=== PATIENT | female | born 1935 | race Caucasian/White ===

== ENCOUNTER 2017-06-19 08:05 | Emergency (ER) | payer MEDICARE, OTHER ==
[~2017-06-19] VITALS: Ht 157.5 cm; Wt 62.0 kg
[2017-06-19 08:18] VITALS: BP 177/83; PULSE 72; RESP 16; TEMP 98; O2SAT 96
[2017-06-19 08:57] LABS: GLUCOSE,URINE NEG (NEG); KETONE, URINE NEG (NEG); NITRITE,URINE NEG (NEG)
[2017-06-19] MEDS ORDERED: LEXA10TA PO (08:58)
[2017-06-19] MEDS ORDERED: LANS15CA PO (08:58)
[2017-06-19] MEDS ORDERED: MONT10TA4 PO (08:58)
[2017-06-19] MEDS ORDERED: ASPI81CH7 CHEW (08:58)
[2017-06-19] MEDS ORDERED: LEVO75TA3 PO (08:58)
[2017-06-19] MEDS ORDERED: BELL1TAB PO (08:58)
[2017-06-19] MEDS ORDERED: LACTCAP8 PO (08:58)
[2017-06-19] MEDS ORDERED: ZOLP5TAB3 PO (08:58)
[2017-06-19] MEDS ORDERED: LOVA40TA PO (08:58)
[2017-06-19 09:00] LABS: BLOOD, URINE TRACE (NEG)
[2017-06-19] MEDS ORDERED: SODIUM CHLORIDE 0.9% FLUSH 10 ML FLUSH IV FLUSH PRN (09:00)
[2017-06-19 09:09] LABS: METHOD OF COLLECTION CLEAN CATCH; URINE COLOR YELLOW (YELLW/STRAW); WBC, URINE 0-2 /hpf (0-5)
[2017-06-19 09:10] LABS: COMMENT (UR) CULT NOT INDICATED; CULTURE IF INDICATED CULT NOT INDICATED; SQUAMOUS EPITHELIAL CELL URINE 0-5 /hpf (0-5)
[2017-06-19 09:15] LABS: AUTOMATED NEUTROPHIL # 11.2 TH/MM3 (1.8-7.7); BASOPHIL # 0.3 TH/MM3 (0-0.2); BASOPHIL % 2.7 % (0.0-2.0); HEMATOCRIT 42.5 % (35.0-46.0); LYMPH % 5.9 % (9.0-44.0); LYMPHOCYTE # 0.7 TH/MM3 (1.0-4.8); MEAN CORPUSCULAR HEMOGLOBIN 29.8 PG (27.0-34.0); MEAN CORPUSCULAR HGB CONC 33.1 % (32.0-36.0); MONO % 2.9 % (0.0-8.0); NEUT % 88.5 % (16.0-70.0); PLATELET COUNT 331 TH/MM3 (150-450); RED BLOOD COUNT 4.72 MIL/MM3 (4.00-5.30); RED CELL DISTRIBUTION WIDTH 13.2 % (11.6-17.2); WHITE BLOOD COUNT 12.6 TH/MM3 (4.0-11.0)
[2017-06-19 09:16] LABS: HEMO FLAGS DIFF FINAL
[2017-06-19] MEDS ORDERED: SODIUM CHLOR 0.9% 1000 ML INJ 1,000 ML IV ONE ×2 (09:30→11:00)
[2017-06-19] MEDS ORDERED: ONDANSETRON HCL 4 MG/2 ML VIAL IV PUSH ONE (09:30)
--- NOTE | 2017-06-19 09:51 | PD ---
HPI Chief Complaint: Abdominal Pain Time Seen by Provider: 08:45 Travel History International Travel<30 days: No Contact w/Intl Traveler<30days: No Traveled to known affect area: No History of Present Illness HPI This is a 81-year-old female who presents to the emergency department with 2 days of abdominal pain, constant feeling like something is squeezing her abdomen , severe, keeping her up at night. She says is migrated to the left side. She' s had dry heaves. She hasn't passed a bowel movement since yesterday. She denies any fevers or chills. She's never had pain like this before. She's been told that she has a gallstone in her gallbladder and that she has a kidney stone in the kidney but she's never had any problems from either. She's never had any abdominal surgeries. PFSH Past Medical History High Cholesterol: Yes Hiatal Hernia: Yes Thyroid Disease: Yes Social History Alcohol Use: No Tobacco Use: No Allergies-Medications (Allergen,Severity, Reaction): Coded Allergies: No Known Allergies (Unverified , 06/19/17) Reported Meds & Prescriptions Reported Meds & Active Scripts Active Reported (Gyqogvaba-Wmusxhhothh-Jpzcjcwh) 16.2 mg Tab 1 Tab PO TID PRN Zolpidem (Zolpidem Tartrate) 5 Mg Tab 5 Mg PO HS PRN Lexapro (Escitalopram Oxalate) 10 Mg Tab 10 Mg PO DAILY PRN Aspirin Children's (Aspirin) 81 Mg Chew 81 Mg CHEW DAILY Probiotic (Lactobacillus Acidophilus) 10 Billion Cell Cap 2 Cap PO TIDAC Lansoprazole 15 Mg Capdr 15 Mg PO DAILY Montelukast (Montelukast Sodium) 10 Mg Tab 10 Mg PO HS Lovastatin 40 Mg Tab 40 Mg PO DAILY Levothyroxine (Levothyroxine Sodium) 75 Mcg Tab 75 Mcg PO DAILY Review of Systems Except as stated in HPI: all other systems reviewed are Neg Physical Exam Narrative GENERAL:Well appearing, no acute distress SKIN: Focused skin assessment warm and dry. HEAD: Atraumatic. Normocephalic. EYES: Pupils equal and round. No injection or drainage. ENT: Dry mucous membranes NECK: Trachea midline. CARDIOVASCULAR: Regular rate and rhythm. No murmur appreciated. RESPIRATORY: Clear to auscultation. Breath sounds equal bilaterally. GASTROINTESTINAL: Abdomen soft, tender to palpation in the left upper and left lower quadrants with guarding MUSCULOSKELETAL: No obvious deformities. NEUROLOGICAL: Awake and alert. No obvious cranial nerve deficits. Moving all extremities. PSYCHIATRIC: Appropriate mood and affect; insight and judgment normal. Data Data Last Documented VS Vital Signs Date Time Temp Pulse Resp B/P (MAP) Pulse Ox O2 Delivery O2 Flow Rate FiO2 06/19/17 11:32 76 15 110/51 (70) 06/19/17 10:02 96 Room Air 06/19/17 08:18 98.0 Orders Orders Complete Blood Count With Diff (06/19/17 08:46) Comprehensive Metabolic Panel (06/19/17 08:46) Lipase (06/19/17 08:46) Urinalysis - C+S If Indicated (06/19/17 08:46) Iv Access Insert/Monitor (06/19/17 08:46) Ecg Monitoring (06/19/17 08:46) Oximetry (06/19/17 08:46) Sodium Chloride 0.9% Flush (Ns Flush) (06/19/17 09:00) Lactic Acid (06/19/17 08:59) Ct Abd/Pel W Iv Contrast(Rout) (06/19/17 ) Sodium Chlor 0.9% 1000 Ml Inj (Ns 1000 M (06/19/17 09:30) Ondansetron Inj (Zofran Inj) (06/19/17 09:30) Iohexol 350 Inj (Omnipaque 350 Inj) (06/19/17 10:25) Morphine Inj (Morphine Inj) (06/19/17 11:00) Sodium Chlor 0.9% 1000 Ml Inj (Ns 1000 M (06/19/17 11:00) Labs Laboratory Tests Test 06/19/17 08:49 06/19/17 09:08 Urine Collection Type CLEAN CATCH Urine Color YELLOW Urine Turbidity CLEAR Urine pH 8.0 Urine Specific Draper 1.014 Urine Protein NEG mg/dL Urine Glucose (UA) NEG mg/dL Urine Ketones NEG mg/dL Urine Occult Blood TRACE Urine Nitrite NEG Urine Bilirubin NEG Urine Leukocyte Esterase NEG Urine RBC 4-9 /hpf Urine WBC 0-2 /hpf Urine Squamous Epithelial Cells 0-5 /hpf Urine Amorphous Sediment LARGE Microscopic Urinalysis Comment CULT NOT INDICATED Urine Collection Time 08:49 White Blood Count 12.6 TH/MM3 Red Blood Count 4.72 MIL/MM3 Hemoglobin 14.1 GM/DL Hematocrit 42.5 % Mean Corpuscular Volume 90.0 FL Mean Corpuscular Hemoglobin 29.8 PG Mean Corpuscular Hemoglobin Concent 33.1 % Red Cell Distribution Width 13.2 % Platelet Count 331 TH/MM3 Mean Platelet Volume 8.3 FL Neutrophils (%) (Auto) 88.5 % Lymphocytes (%) (Auto) 5.9 % Monocytes (%) (Auto) 2.9 % Eosinophils (%) (Auto) 0.0 % Basophils (%) (Auto) 2.7 % Neutrophils # (Auto) 11.2 TH/MM3 Lymphocytes # (Auto) 0.7 TH/MM3 Monocytes # (Auto) 0.4 TH/MM3 Eosinophils # (Auto) 0.0 TH/MM3 Basophils # (Auto) 0.3 TH/MM3 CBC Comment DIFF FINAL Differential Comment Blood Urea Nitrogen 17 MG/DL Creatinine 1.20 MG/DL Random Glucose 128 MG/DL Total Protein 8.5 GM/DL Albumin 3.9 GM/DL Calcium Level 9.1 MG/DL Alkaline Phosphatase 89 U/L Aspartate Amino Transf (AST/SGOT) 32 U/L Alanine Aminotransferase (ALT/SGPT) 28 U/L Total Bilirubin 0.9 MG/DL Sodium Level 142 MEQ/L Potassium Level 3.9 MEQ/L Chloride Level 106 MEQ/L Carbon Dioxide Level 28.7 MEQ/L Anion Gap 7 MEQ/L Estimat Glomerular Filtration Rate 43 ML/MIN Lactic Acid Level 2.3 mmol/L Lipase 161 U/L MDM Medical Decision Making Medical Screen Exam Complete: Yes Emergency Medical Condition: Yes Interpretation(s) Afebrile, no tachycardia, hypertensive Leukocytosis 88% neutrophils Mild renal insufficiency Lactic acid is 2.3 Urinalysis: Some red blood cells in the urine Last 24 hours Impressions Abdomen/Pelvis CT 06/19/17 0000 Signed Impressions: Service Date/Time: Monday, June 19, 2017 10:19 - CONCLUSION: 1.4 cm right lobe of the liver Large calcified gallstone in a benign-appearing gallbladder Pelvic contents unremarkable. Fran Bernal MD FACR Differential Diagnosis Diverticulitis, pancreatitis, gastritis, gastroenteritis, pyelonephritis, nephrolithiasis Narrative Course This is a 81-year-old female who presents to the emergency department with abdominal pain that seems to be concentrated on the left side associated with dry heaves. She is dry appearing on exam. She is quite tender in the left upper and lower quadrants. Labs are obtained which demonstrate a mild leukocytosis with 88% neutrophils. Urinalysis is negative for infection. CT abdomen and pelvis does not demonstrate any acute source of her abdominal discomfort. She feels much better after 2 L of IV fluid and pain and antiemetics medications. I suspect she may have an early gastroenteritis. I think she is safe for outpatient management but given her age I cautioned her that if she feels that all worse in 24-48 hours she should return to the emergency department and she expressed understanding and seems very reliable. Diagnosis Primary Impression: Gastroenteritis Patient Instructions: General Instructions Additional Instructions: If you develop lightheadedness, dizziness, persistent vomiting, inability to eat , or severe abdominal pain return to the emergency department.Return to the emergency department if your symptoms don't improve or worsen. Followup with your primary care physician in 2-3 days if your symptoms have not resolved. Wash your hands aggressively after using the restroom as to not spread your illness to others. Med/Other Pt SpecificInfo: Prescription(s) given Scripts Tramadol (Tramadol) 50 Mg Tab 50 MG PO Q6H Y for PAIN, #10 TAB 0 Refills Prov: Luanne Bone MD 06/19/17 Ondansetron Odt (Zofran Odt) 4 Mg Tab 4 MG SL Q6HR Y for Nausea/Vomiting, #10 TAB 0 Refills Prov: Luanne Bone MD 06/19/17 Disposition: 01 DISCHARGE HOME Condition: Stable Luanne Bone MD Jun 19, 2017 09:51
[2017-06-19 09:55] LABS: CHLORIDE 106 MEQ/L (98-107); POTASSIUM 3.9 MEQ/L (3.5-5.1); SODIUM (NA) 142 MEQ/L (136-145)
[2017-06-19 09:56] LABS: ANION GAP 7 MEQ/L (5-15); BICARBONATE 28.7 MEQ/L (21.0-32.0)
[2017-06-19 09:59] LABS: GLOMERULAR FILTRATION RATE 43 ML/MIN (>89)
[2017-06-19 10:00] LABS: TOTAL BILIRUBIN ADULT 0.9 MG/DL (0.2-1.0)
[2017-06-19 10:01] LABS: ALKALINE PHOSPHATASE 89 U/L (45-117)
[2017-06-19 10:02] VITALS: O2SAT 96
[2017-06-19 10:08] LABS: ALT (GPT) 28 U/L (10-53)
[2017-06-19 10:11] LABS: AST (GOT) 32 U/L (15-37); BLOOD UREA NITROGEN 17 MG/DL (7-18)
[2017-06-19] MEDS ORDERED: IOHEXOL 350 MG/ML 10 ML VIAL (for RAD DIAG) IVCONTRAST ONE (10:25)
--- NOTE | 2017-06-19 10:50 | RADRPT ---
EXAM DATE/TIME: 06/19/2017 10:19 [facility] COMPARISON: No previous studies available for comparison. INDICATIONS : Lower abdominal pain, worse on the left. Nausea. IV CONTRAST: 80 cc Omnipaque 350 (iohexol) IV ORAL CONTRAST: No oral contrast ingested. RADIATION DOSE: 8.77 CTDIvol (mGy) MEDICAL HISTORY : Renal calculi. Hernia, hiatal. SURGICAL HISTORY : Thyroidectomy. ENCOUNTER: Initial ACUITY: 2 days PAIN SCALE: 7/10 LOCATION: Bilateral lower quadrant TECHNIQUE: Volumetric scanning of the abdomen and pelvis was performed. Using automated exposure control and ad justment of the mA and/or kV according to patient size, radiation dose was kept as low as reasonably achievable to obtain optimal diagnostic quality images. DICOM format image data is available electro nically for review and comparison. FINDINGS: LOWER LUNGS: One spaces are clear. Large hiatal hernia Poorly circumscribed 1.4cm mass right lobe of liver, not a simple cysts. Calcified gallstone The spleen, pancreas and adrenals unremarkable Right and left kidneys appear normal Region the cecum and terminal unremarkable Mesentery appears normal Calcified uterine fibroid There is no diverticulitis or ascites. Review of bone windows reveals [id number] degenerative changes in the lower lumbar spine. \ CONCLUSION: 1.4 cm right lobe of the liver Large calcified gallstone in a benign-appearing gallbladder Pelvic contents unremarkable. Fran Bernal MD FACR on June 19, 2017 at 10:44 Board Certified Radiologist. This report was verified electronically.
[2017-06-19] MEDS ORDERED: MORPHINE SULFATE 4 MG/ML INJ IV PUSH ONE (11:00)
[2017-06-19 11:32] VITALS: BP 110/51; PULSE 76; RESP 15
[2017-06-19] MEDS ORDERED: TRAM50TA PO (11:59)
[2017-06-19] MEDS ORDERED: ZOFR4TAB3 SL (11:59)
== END 2017-06-19 12:52 | disposition home or self-care (01) ==
LOC: PHED 08:05
DX: K52.9 Noninfective gastroenteritis and colitis, unspecified (principal); E78.00 Pure hypercholesterolemia, unspecified; E07.9 Disorder of thyroid, unspecified
CPT/HCPCS: 74177; 80053; 81001; 83605; 83690; 85025; 96361; 96374; 96375; 99285; J2270; J2405; J7030; Q9967